=== PATIENT | female | born 1995 | race Two or more races ===

== ENCOUNTER 2019-12-14 06:40 | Inpatient (IN) ==
[2019-12-14] MEDS ORDERED: LACTATED RINGERS 500 ML IV PRN (06:59)
[2019-12-14] MEDS ORDERED: LACTATED RINGERS 1,000 ML IV ONE (06:59)
[2019-12-14] MEDS ORDERED: ONDANSETRON 4 MG/2 ML VIAL IV PRN ×2 (06:59→10:03)
[2019-12-14] MEDS ORDERED: LACTATED RINGERS 1,000 ML IV SCH ×2 (07:00→10:30)
[2019-12-14] MEDS ORDERED: diphenhydrAMINE 50 MG/1 ML VIAL IV PRN ×2 (07:05)
[2019-12-14] MEDS ORDERED: PROMETHAZINE 25 MG/1 ML VIAL IM ONE ×2 (07:05→14:05)
[2019-12-14] MEDS ORDERED: CITRIC ACID/SODIUM CITRATE 30 ML UDCUP PO ONE (07:05)
[2019-12-14] MEDS ORDERED: hydrOXYzine HCL 25 MG/1 ML VIAL IM PRN (07:05)
[2019-12-14] MEDS ORDERED: FAMOTIDINE 20 MG/2 ML VIAL IV ONE (07:05)
[2019-12-14] MEDS ORDERED: ePHEDrine 50 MG/ML AMP IV PRN (07:05)
[2019-12-14] MEDS ORDERED: ONDANSETRON 4 MG/2 ML VIAL IV ONE (07:05)
[2019-12-14] MEDS ORDERED: OXYTOCIN/LR 30 UNIT/1,000 ML BAG IV ONE (07:06)
[2019-12-14] MEDS ORDERED: OXYTOCIN/LR 20 UNIT/1,000 ML BAG IV ONE ×2 (07:06→10:03)
[2019-12-14] MEDS ORDERED: OXYTOCIN 10 UNIT/ML VIAL IM ONE (07:06)
[2019-12-14 07:29] LABS: Basophils % 0.2 % (0.0-0.8)
[2019-12-14 07:33] LABS: Eosinophils # 0.1 10*3/uL (0.0-0.87); Eosinophils % 0.9 % (0.00-10.9); Hematocrit 33.2 VOL% (35.7-47.0); Immature Granulocytes % 0.5 %; Immature Granulocytes Absolute 0.05 #; Lymphocytes # 1.5 10*3/uL (1.4-4.0); Lymphocytes % 15.2 % (21.3-54.2); Mean Corpuscular HGB Conc 30.1 GM/DL (32-36); Mean Platelet Volume 11.3 FL (9.6-12.0); Monocytes % 4.4 % (1.7-12.7); Neutrophils % 78.8 % (38.7-73.9); Platelet Count 218 T/CUMM (130-400); Red Blood Count 4.55 MC/CUMM (3.8-5.5); Red Cell Distribution Width 16.1 % (9.3-17.3); White Blood Count 9.8 T/CUMM (4-12)
[2019-12-14 07:49] LABS: Albumin 2.8 G/DL (3.4-5.0); Bilirubin,Total 0.5 MG/DL (0.2-1.0); Calcium 8.7 MG/DL (8.5-10.1); Osmolality,Calculated 267.1 MOS/KG (273-304); Total Protein 7.4 G/DL (6.4-8.3)
[2019-12-14] MEDS ORDERED: ceFAZolin 2,000 MG in PREMIX 1 EACH IV ONE (07:58)
[2019-12-14] MEDS ORDERED: DEXAMETHASONE 4 MG/1 ML VIAL ONE (08:04)
[2019-12-14] MEDS ORDERED: ROPIVACAINE 0.5% 30 ML VIAL ONE (08:04)
[2019-12-14 09:58] LABS: Amorphous Crystals,Urine Few /HPF (Few); Apearance,Urine CLEAR (Clear); Bacteria,Urine Many /HPF (Few); Bilirubin,Urine Negative (Negative); Blood, Urine Moderate mg/dL (Negative); Glucose,Urine (UA) 50 mg/dL (Negative); Ketones,Urine 20 mg/dL (Negative); Mucus,Urine Many /LPF (Occasional); Nitrite,Urine Positive (Negative); Protein,Urine Negative; RBC,Urine 4 /HPF (0-4); Urine Color Yellow (Yellow); Urine Specific Gravity 1.017 (1.001-1.035); Urine Urobilinogen < 2.0 EU/DL (0.2-1.0); WBC,Urine 6 /HPF (0-6)
[2019-12-14] MEDS ORDERED: SIMETHICONE CHEW 80 MG TABLET PO PRN (10:03)
[2019-12-14] MEDS ORDERED: ACETAMINOPHEN 325 MG TABLET PO PRN (10:03)
[2019-12-14] MEDS ORDERED: RHO(D) IMMUNE GLOBULIN 300 MCG SYRINGE IM ONE (10:03)
[2019-12-14] MEDS ORDERED: BUPIVACAINE SPINAL 0.75% 2 ML AMP SPINAL ONE (10:20)
[2019-12-14] MEDS ORDERED: PHENYLEPHRINE 1 MG/10 ML SYRINGE IV ONE (10:22)
[2019-12-14] MEDS ORDERED: MORPHINE 10 MG/10 ML VIAL ONE (10:23)
[2019-12-14] MEDS ORDERED: fentaNYL 100 MCG/2 ML VIAL ONE (10:23)
[2019-12-14] MEDS ORDERED: ceFAZolin 1,000 MG in SYRINGE 1 EACH IV SCH (10:30)
[2019-12-14] MEDS ORDERED: SODIUM CHLORIDE 0.9% 50 ML IV ONE (17:01)
[2019-12-14] MEDS: ceFAZolin 1,000 MG in SYRINGE 1 EACH IV SCH (17:06)
[2019-12-14 17:41] LABS: Basophils % 0.1 % (0.0-0.8); Hematocrit 31.2 VOL% (35.7-47.0); Hemoglobin 9.3 GM/DL (12.0-16.0); Immature Granulocytes % 0.5 %; Immature Granulocytes Absolute 0.08 #; Lymphocytes # 0.8 10*3/uL (1.4-4.0); Lymphocytes % 4.4 % (21.3-54.2); Mean Corpuscular HGB Conc 29.8 GM/DL (32-36); Mean Corpuscular Volume 73.9 FL (87-102); Mean Platelet Volume 11.7 FL (9.6-12.0); Monocytes % 3.2 % (1.7-12.7); Neutrophils % 91.8 % (38.7-73.9); Platelet Count 203 T/CUMM (130-400); Red Blood Count 4.22 MC/CUMM (3.8-5.5); White Blood Count 17.5 T/CUMM (4-12)
[2019-12-14 18:26] LABS: Lymphocytes 6 % (20-55); Microcytosis 2+; Segmented Neutrophils 94 % (50-85); Total Cells Counted 100
[2019-12-14 18:27] LABS: Anisocytosis 2+; Hypochromasia Slight; Platelet Estimate Normal
[2019-12-15] MEDS: ceFAZolin 1,000 MG in SYRINGE 1 EACH IV SCH (00:30)
[2019-12-15 07:08] LABS: Basophils % 0.2 % (0.0-0.8); Eosinophils # 0.1 10*3/uL (0.0-0.87); Eosinophils % 0.5 % (0.00-10.9); Hematocrit 27.7 VOL% (35.7-47.0); Hemoglobin 8.4 GM/DL (12.0-16.0); Immature Granulocytes % 0.5 %; Immature Granulocytes Absolute 0.06 #; Lymphocytes # 1.5 10*3/uL (1.4-4.0); Lymphocytes % 13.4 % (21.3-54.2); Mean Corpuscular HGB Conc 30.3 GM/DL (32-36); Mean Corpuscular Volume 72.9 FL (87-102); Mean Platelet Volume 12.2 FL (9.6-12.0); Monocytes % 8.4 % (1.7-12.7); Platelet Count 174 T/CUMM (130-400); Red Cell Distribution Width 16.1 % (9.3-17.3); White Blood Count 11.4 T/CUMM (4-12)
[2019-12-15 07:27] LABS: Hypochromasia 2+; Platelet Estimate Adequate
[2019-12-15 07:28] LABS: Microcytosis 1+
[2019-12-15] MEDS: METOCLOPRAMIDE 10 MG TABLET PO SCH ×3 (07:55→20:31)
[2019-12-15] MEDS: MAGNESIUM HYDROXIDE SUSP 30 ML UDCUP PO PRN ×2 (07:56→20:31)
[2019-12-15] MEDS: DOCUSATE SODIUM 100 MG CAPSULE PO SCH ×2 (08:15→20:33)
[2019-12-15] MEDS: MULTIVITAMIN (PRENATAL) TABLET PO SCH (08:15)
[2019-12-15] MEDS: FERROUS SULFATE 325 MG TABLET PO SCH ×2 (10:09→20:33)
[2019-12-15] MEDS: IBUPROFEN 800 MG TABLET PO PRN ×2 (10:09→20:31)
[2019-12-16] MEDS: METOCLOPRAMIDE 10 MG TABLET PO SCH ×2 (02:01→11:58)
[2019-12-16] MEDS: DOCUSATE SODIUM 100 MG CAPSULE PO SCH (09:00)
[2019-12-16] MEDS: MULTIVITAMIN (PRENATAL) TABLET PO SCH (09:00)
[2019-12-16] MEDS: FERROUS SULFATE 325 MG TABLET PO SCH (09:00)
[2019-12-16] MEDS ORDERED: DIPH/TET/ACEL PERT BOOSTER VACCINE 0.5 ML VIAL IM ONE (10:49)
[2019-12-16 12:42] VITALS: BP 113/87
== END 2019-12-16 12:55 | disposition home or self-care (01) | DRG 540 ==
LOC: N.LDOUT 06:40 → N.LD 06:44 → N.OB 13:45
PROVIDERS: ADMIT Obstetrics & Gynecology; ATTEND Obstetrics & Gynecology